=== PATIENT | female | born 1975 | race Caucasian/White ===

== ENCOUNTER → 2023-08-27 12:00 | Outpatient (REF) | payer BC, SELFPAY | LOC: CLAB 12:00 | PROVIDERS: ATTENDING PHYSICIAN Obstetrics & Gynecology Gynecology | DX: N93.9 Abnormal uterine and vaginal bleeding, unspecified (principal); N84.0 Polyp of corpus uteri | CPT/HCPCS: 88305 ==

== ENCOUNTER → 2023-10-19 06:21 | Day surgery (SDC) | payer BC, SELFPAY | LOC: GI 06:21 | PROVIDERS: ATTENDING PHYSICIAN Internal Medicine Gastroenterology | DX: Z12.11 Encounter for screening for malignant neoplasm of colon (principal); K64.0 First degree hemorrhoids; R12 Heartburn; K21.00 Gastro-esophageal reflux disease with esophagitis, without bleeding; K22.89 Other specified disease of esophagus; K31.89 Other diseases of stomach and duodenum; K31.7 Polyp of stomach and duodenum; D12.3 Benign neoplasm of transverse colon; D12.4 Benign neoplasm of descending colon; K29.50 Unspecified chronic gastritis without bleeding; K20.90 Esophagitis, unspecified without bleeding | CPT/HCPCS: 45380; 43239; 88305; 88342 ==

== ENCOUNTER → 2024-01-07 06:26 | Day surgery (SDC) | payer BC, SELFPAY | LOC: GI 06:26 | PROVIDERS: ATTENDING PHYSICIAN Internal Medicine Gastroenterology | DX: K21.00 Gastro-esophageal reflux disease with esophagitis, without bleeding (principal); K22.89 Other specified disease of esophagus; K22.2 Esophageal obstruction; K44.9 Diaphragmatic hernia without obstruction or gangrene; K31.7 Polyp of stomach and duodenum | CPT/HCPCS: 43239; 88305 ==

== ENCOUNTER → 2024-08-01 12:30 | Outpatient (REF) | payer BC, SELFPAY | LOC: HWWDC 12:30 | PROVIDERS: ATTENDING PHYSICIAN Obstetrics & Gynecology Gynecology; FAMILY PHYSICIAN Nurse Practitioner Family | DX: Z12.31 Encounter for screening mammogram for malignant neoplasm of breast (principal) | CPT/HCPCS: 77063; 77067 ==